=== PATIENT | male | born 1970 | race Caucasian/White ===

== ENCOUNTER 2018-06-25 09:44 | Day surgery (SDC) | payer BC ==
[2018-06-24 08:28] VITALS: BMI 22.3
[~2018-06-25 09:44] MED LIST: KETOROLAC 30 MG/ML 1 ML VIAL ONE; LACTATED RINGERS 1,000 ML IV SCH; LIDOCAINE 1% 20 ML VIAL (10MG/ML) FOR IV START INTRADERMA PRN; LIDOCAINE 1% INJ 10MG/ML (20 ML MDV) ONE; MIDAZOLAM (PF) 2 MG/2 ML VIAL IV PRN; MIDAZOLAM 2 MG/2 ML VIAL ONE; PROPOFOL 10 MG/ML 20 ML VIAL IV ONE; fentaNYL (PF) 50 MCG/ML 2 ML AMP ONE
[2018-06-25 10:35] VITALS: RESP 16; TEMP 98.1
[2018-06-25] MEDS ORDERED: PROPOFOL 10 MG/ML 20 ML VIAL IV ONE (11:09)
--- NOTE | 2018-06-25 11:27 | P.PCN ---
Date of Procedure: 06/25/18 Procedure(s) Performed: BRIEF HISTORY: Patient is a 48-year-old pleasant white male scheduled for an elective colonoscopy as a part of screening for colorectal neoplasia. He has family history of colon cancer diagnosed in his maternal grandmother at age 80 and maternal uncle at age 60. PROCEDURE PERFORMED: Colonoscopy with snare polypectomy. PREOPERATIVE DIAGNOSIS: Screening for colon cance/family history of colon cancer r. IV sedation per Anesthesia. PROCEDURE: After informed consent was obtained, the patient, was brought into the endoscopy unit. IV sedation was administered by Anesthesia under continuous monitoring. Digital rectal examination was normal. Initially the Olympus CF- 160 flexible video colonoscope was then inserted in the rectum, gradually advanced into the cecum without any difficulty. Careful examination was performed as the scope was gradually being withdrawn. Ileocecal valve and the appendiceal orifice were visualized and appeared normal. Prep was excellent. In the base of the cecum there was a 5 mm flat polyp that was removed by snare polypectomy. Mucosa of the cecum, ascending colon, transverse colon, appeared normal. In the descending colon there was another 5 mm broad-based polyp removed by snare polypectomy. The rest of the descending colon, sigmoid colon, and rectum appeared normal. Retroflexion was performed in the rectum and no lesions were seen. The patient tolerated the procedure well. IMPRESSION: 5 mm flat cecal polyp status post snare polypectomy 5 mm broad-based descending colon polyp status post snare polypectomy RECOMMENDATIONS: Findings of this examination were discussed with the patient as well as his family. He was advised to follow with the biopsy results and have a repeat colonoscopy in 3-5 years
[2018-06-25 11:50] VITALS: BP 92/54; PULSE 58
== END 2018-06-25 12:07 | disposition home or self-care (01) ==
LOC: ORWHC2ENDO 09:44
PROVIDERS: ATTEND Internal Medicine Gastroenterology
DX: Z12.11 Encounter for screening for malignant neoplasm of colon (principal); D12.0 Benign neoplasm of cecum; K63.5 Polyp of colon; Z80.0 Family history of malignant neoplasm of digestive organs; J45.909 Unspecified asthma, uncomplicated
CPT/HCPCS: 88305; 45385; J2704

== ENCOUNTER 2020-08-23 13:36 | Observation (INO) | payer BC ==
--- NOTE | 2020-08-23 14:08 | ED ---
General Adult HPI - General Chief complaint: Chest Pain Stated complaint: chest pain Time Seen by Provider: 08/23/20 13:52 Source: patient, RN notes reviewed, old records reviewed Mode of arrival: wheelchair Limitations: no limitations - History of Present Illness Initial comments: 50-year-old male presenting for evaluation of chest pain, diaphoresis, pain radiating to the left arm. Patient has no previous history of CAD. No history of DVT or PE. Yesterday in the middle the night he was woke with chest pain, palpitations and dyspnea. The symptoms have resolved. He was seen by cardiology last week and scheduled for an outpatient stress test within the next several weeks. He is a nonsmoker. Nondiabetic. He does have a family history of CAD. - Related Data Home Medications Medication Instructions Recorded Confirmed Albuterol Sulfate [Ventolin HFA] 1 - 2 puff INHALATION RT-QID PRN 08/23/20 08/23/20 Aspirin EC [Ecotrin Low Dose] 81 mg PO ONCE PRN 08/23/20 08/23/20 Multivitamins, Thera [Multivitamin 1 tab PO DAILY 08/23/20 08/23/20 (formulary)] Pantoprazole Sodium [Protonix] 40 mg PO HS 08/23/20 08/23/20 Saw [place] 500 mg PO DAILY 08/23/20 08/23/20 Tamsulosin [Flomax] 0.4 mg PO DIRECTED 08/23/20 08/23/20 Allergies Allergy/AdvReac Type Severity Reaction Status Date / Time latex AdvReac Rash/Hives Verified 08/23/20 14:21 Review of Systems ROS Statement: Those systems with pertinent positive or pertinent negative responses have been documented in the HPI. ROS Other: All systems not noted in ROS Statement are negative. Past Medical History Past Medical History: Asthma, GERD/Reflux History of Any Multi-Drug Resistant Organisms: None Reported Past Surgical History: Hernia Repair Additional Past Surgical History / Comment(s): wisdom teeth Past Anesthesia/Blood Transfusion Reactions: No Reported Reaction Past Psychological History: No Psychological Hx Reported Smoking Status: Never smoker Past Alcohol Use History: None Reported Past Drug Use History: None Reported - Past Family History Mother Family Medical History: No Reported History General Exam Limitations: no limitations General appearance: alert, in no apparent distress Head exam: Present: atraumatic, normocephalic Eye exam: Present: normal appearance, PERRL ENT exam: Present: normal exam Neck exam: Present: normal inspection. Absent: tenderness, meningismus Respiratory exam: Present: normal lung sounds bilaterally. Absent: respiratory distress, wheezes Cardiovascular Exam: Present: regular rate, normal rhythm GI/Abdominal exam: Present: soft. Absent: distended, tenderness Extremities exam: Present: normal inspection, normal capillary refill. Absent: pedal edema, calf tenderness Neurological exam: Present: alert, oriented X3, CN II-XII intact. Absent: motor sensory deficit Psychiatric exam: Present: normal affect, normal mood Skin exam: Present: warm, dry, intact. Absent: cyanosis, diaphoretic Course Vital Signs 08/23/20 08/23/20 13:37 15:09 Temperature 98 F Pulse Rate 63 60 Respiratory 18 18 Rate Blood Pressure 138/78 111/72 O2 Sat by Pulse 99 99 Oximetry EKG Findings - EKG Comments: EKG Findings:: EKG: Sinus bradycardia, rate 59, MT interval 182, QRS duration 104, QTC [address] segment elevation. Medical Decision Making - Medical Decision Making 50-year-old male with chief complaint of chest pain. Has been having some outpatient workup completed, scheduled for a stress test in the next 2 weeks. Workup revealed EKG which is sinus rhythm, chest x-rays negative for acute cardio pulmonary disease, normal CBC, d-dimer mildly elevated 0.59, CT angiog sherif is performed which is negative for PE, no acute findings. CMP within normal limits, initial troponin is negative. Given the patient's worsening symptoms he will be admitted for chest pain rule out. Case discussed with Dr. Grimes who will admit. Cardiology placed on consult. - Lab Data Result diagrams: 08/23/20 14:02 08/23/20 14:02 Lab Results 08/23/20 08/23/20 08/23/20 Range/Units 14:02 14:02 14:02 WBC 4.1 (3.8-10.6) k/uL RBC 4.54 (4.30-5.90) m/uL Hgb 13.9 (13.0-17.5) gm/dL Hct 41.5 (39.0-53.0) % MCV 91.5 (80.0-100.0) fL MCH 30.7 (25.0-35.0) pg MCHC 33.5 (31.0-37.0) g/dL RDW 12.4 (11.5-15.5) % Plt Count 187 (150-450) k/uL MPV 7.5 Neutrophils % 53 % Lymphocytes % 37 % Monocytes % 6 % Eosinophils % 2 % Basophils % 1 % Neutrophils # 2.2 (1.3-7.7) k/uL Lymphocytes # 1.5 (1.0-4.8) k/uL Monocytes # 0.2 (0-1.0) k/uL Eosinophils # 0.1 (0-0.7) k/uL Basophils # 0.0 (0-0.2) k/uL PT 10.4 (9.0-12.0) sec INR 1.0 (<1.2) APTT 25.6 (22.0-30.0) sec D-Dimer 0.59 (<0.60) mg/L FEU Sodium 141 (137-145) mmol/L Potassium 4.3 (3.5-5.1) mmol/L Chloride 103 (98-107) mmol/L Carbon Dioxide 29 (22-30) mmol/L Anion Gap 9 mmol/L BUN 17 (9-20) mg/dL Creatinine 0.73 (0.66-1.25) mg/dL Est GFR (CKD-EPI)AfAm >90 (>60 ml/min/1.73 sqM) Est GFR (CKD-EPI)NonAf >90 (>60 ml/min/1.73 sqM) Glucose 124 H (74-99) mg/dL Calcium 9.7 (8.4-10.2) mg/dL Magnesium 1.8 (1.6-2.3) mg/dL Total Bilirubin 0.7 (0.2-1.3) mg/dL AST 30 (17-59) U/L ALT 26 (4-49) U/L Alkaline Phosphatase 39 (38-126) U/L Troponin I (0.000-0.034) ng/mL NT-Pro-B Natriuret Pep pg/mL Total Protein 7.8 (6.3-8.2) g/dL Albumin 4.7 (3.5-5.0) g/dL Lipase 116 (23-300) U/L 08/23/20 08/23/20 Range/Units 14:02 14:02 WBC (3.8-10.6) k/uL RBC (4.30-5.90) m/uL Hgb (13.0-17.5) gm/dL Hct (39.0-53.0) % MCV (80.0-100.0) fL MCH (25.0-35.0) pg MCHC (31.0-37.0) g/dL RDW (11.5-15.5) % Plt Count (150-450) k/uL MPV Neutrophils % % Lymphocytes % % Monocytes % % Eosinophils % % Basophils % % Neutrophils # (1.3-7.7) k/uL Lymphocytes # (1.0-4.8) k/uL Monocytes # (0-1.0) k/uL Eosinophils # (0-0.7) k/uL Basophils # (0-0.2) k/uL PT (9.0-12.0) sec INR (<1.2) APTT (22.0-30.0) sec D-Dimer (<0.60) mg/L FEU Sodium (137-145) mmol/L Potassium (3.5-5.1) mmol/L Chloride (98-107) mmol/L Carbon Dioxide (22-30) mmol/L Anion Gap mmol/L BUN (9-20) mg/dL Creatinine (0.66-1.25) mg/dL Est GFR (CKD-EPI)AfAm (>60 ml/min/1.73 sqM) Est GFR (CKD-EPI)NonAf (>60 ml/min/1.73 sqM) Glucose (74-99) mg/dL Calcium (8.4-10.2) mg/dL Magnesium (1.6-2.3) mg/dL Total Bilirubin (0.2-1.3) mg/dL AST (17-59) U/L ALT (4-49) U/L Alkaline Phosphatase (38-126) U/L Troponin I <0.012 (0.000-0.034) ng/mL NT-Pro-B Natriuret Pep 67 pg/mL Total Protein (6.3-8.2) g/dL Albumin (3.5-5.0) g/dL Lipase (23-300) U/L Disposition Clinical Impression: Chest pain Disposition: ADMITTED IP TO THIS HOSP Condition: Stable Is patient prescribed a controlled substance at d/c from ED?: No Referrals: Keven Grimes Jr, [Primary Care Provider] - 1-2 days Decision to Admit Reason: Admit from EC Decision Date: 08/23/20 Decision Time: 16:07
[2020-08-23 14:23] LABS: Basophils % (A) 1 %; Eosinophils # (A) 0.1 k/uL (0-0.7); Eosinophils % (A) 2 %; HCT 41.5 % (39.0-53.0); HGB 13.9 gm/dL (13.0-17.5); Lymphocytes # (A) 1.5 k/uL (1.0-4.8); Lymphocytes % (A) 37 %; MCH 30.7 pg (25.0-35.0); MCHC 33.5 g/dL (31.0-37.0); MCV 91.5 fL (80.0-100.0); Mean Platelet Volume 7.5; Monocytes # (A) 0.2 k/uL (0-1.0); Monocytes % (A) 6 %; Neutrophils # (A) 2.2 k/uL (1.3-7.7); Neutrophils % (A) 53 %; Platelet Count 187 k/uL (150-450); RBC 4.54 m/uL (4.30-5.90); RDW 12.4 % (11.5-15.5); WBC 4.1 k/uL (3.8-10.6)
--- NOTE | 2020-08-23 14:24 | XR ---
EXAMINATION TYPE: XR chest 1V portable DATE OF EXAM: 08/23/2020 HISTORY: Shortness of breath. COMPARISON: None. TECHNIQUE: Single view of the chest is submitted. FINDINGS: Demonstrated are scattered senescent parenchymal change. There is no evidence for focal infiltrate. The heart is stable. Hilar and mediastinal structures are within normal limits. Degenerative changes are seen of the dorsal spine. IMPRESSION: 1. Chronic changes without evidence for acute pulmonary disease.
[2020-08-23 14:37] LABS: ALT 26 U/L (4-49); AST 30 U/L (17-59); African American GFR (CKD) >90 (>60 ml/min/1.73 sqM); Albumin 4.7 g/dL (3.5-5.0); Alkaline Phosphatase 39 U/L (38-126); Anion Gap 9 mmol/L; Blood Urea Nitrogen 17 mg/dL (9-20); Calcium 9.7 mg/dL (8.4-10.2); Carbon Dioxide 29 mmol/L (22-30); Chloride 103 mmol/L (98-107); Glucose 124 mg/dL (74-99); Lipase 116 U/L (23-300); Magnesium 1.8 mg/dL (1.6-2.3); Non-African American GFR(CKD) >90 (>60 ml/min/1.73 sqM); Potassium 4.3 mmol/L (3.5-5.1); Sodium 141 mmol/L (137-145); Total Bilirubin 0.7 mg/dL (0.2-1.3); Total Protein 7.8 g/dL (6.3-8.2)
[2020-08-23 14:46] LABS: D-Dimer 0.59 mg/L FEU (<0.60); Partial Thromboplastin Time 25.6 sec (22.0-30.0); Prothrombin Time 10.4 sec (9.0-12.0)
--- NOTE | 2020-08-23 15:34 | CT ---
EXAMINATION TYPE: CT angio chest DATE OF EXAM: 08/23/2020 COMPARISON: None HISTORY: Mid to left sided chest pain with left arm heaviness and cold feeling. CT DLP: 315.9 mGycm CONTRAST: CT chest with contrast and 3D reconstruction with MIP imaging is performed with IV Contrast, patient injected with 100 mL of Isovue 370. Contrast-enhanced CT of the chest was performed through the course of the pulmonary arteries with markus g and mediastinal window settings submitted. 3D reconstruction with MIP imaging was also performed. PULMONARY ARTERIES: The pulmonary arteries and their major tributaries are patent. I do not see soni dence for sizable filling defect to suggest pulmonary embolic process. LUNGS: The lungs are clear and free of infiltrate. No evidence for atelectasis. No pulmonary nodule or mass is detected. No pleural effusion. MEDIASTINUM: Thoracic aorta is of normal caliber,however, evaluation is limited given timing of the contrast bolus. If there is concern for thoracic aortic pathology consider JIM. Correlate clinicall y . The heart is not enlarged. No evidence for mediastinal mass. No mediastinal lymph nodes greater than 1cm. HILAR STRUCTURES: No evidence for mass. No hilar lymph nodes greater than 1 cm. UPPER ABDOMEN: No significant abnormality is seen. IMPRESSION: 1. No evidence for Pulmonary embolism at this time.
[2020-08-23] MEDS ORDERED: ASPIRIN 325 MG TAB PO STA (15:46)
[2020-08-23] MEDS ORDERED: MORPHINE SULFATE 4 MG/ML SYRINGE IV PRN (16:05)
[2020-08-23] MEDS ORDERED: ACETAMINOPHEN TAB 325 MG TAB PO PRN (16:05)
[2020-08-23] MEDS ORDERED: NALOXONE 0.4 MG/ML 1 ML VIAL IV PRN (16:05)
[2020-08-23] MEDS ORDERED: NITROGLYCERIN SL TABS 0.4 MG TAB SUBLINGUAL PRN (16:06)
[2020-08-24] MEDS ORDERED: DOBUTamine DRIP for NUC MED 500 MG in DEXTROSE/WATER 1 250ML.BAG IV PRN ×2 (09:30→12:26)
[2020-08-24] MEDS ORDERED: ALBUTEROL HFA INHALER INHALATION PRN (10:28)
[2020-08-24] MEDS ORDERED: TAMSULOSIN 0.4 MG CAP.ER.24H PO PRN (10:30)
[2020-08-24] MEDS ORDERED: SYMBICORT 80-4.5 MCG INHALER INHALATION SCH (10:30)
[2020-08-24] MEDS ORDERED: PANTOPRAZOLE 40 MG/10 ML VIAL IVP SCH (10:45)
--- NOTE | 2020-08-24 10:46 | P.CRDCN ---
History of Present Illness History of present illness: HISTORY OF PRESENTING ILLNESS This is a pleasant 50-year-old male with no significant past medical history. He follows in the office with Dr. Torres. We have been asked to see in consultation for chest pain. He states for the previous 3-4 months he has been feeling increasingly short of breath and his energy level is significantly decreased. He was diagnosed with closely June 12 but has since recovered. At that time his symptoms only loss of taste and smell. The night before last while sleeping he had an episode of discomfort in his chest that radiated to the left shoulder and upper arm associated with becoming extremely diaphoretic. He denies associated shortness of breath at that time or palpitations. The shortness of breath he has been experiencing is mostly exertional in nature. He did recently established in the office with Dr. Torres and is scheduled to undergo stress test and echocardiogram in the office. He states the episode he experienced was different than he has been feeling previously which prompted him to come to the emergency room for further evaluation. He has had no further symptoms of chest discomfort since arriving at the hospital. However during the time of my exam while asking him to take a deep breath he stated he felt a discomfort in his chest similar to what he experienced the night before. The pain was clearly exacerbated by deep inspiration. EKG revealed sinus bradycardia heart rate of [address] or T wave abnormalities noted. Chest x-ray is negative for an acute cardiopulmonary process. CTA negative for pulmonary embolism. Laboratory data reviewed, CBC unremarkable, d-dimer 0.59, sodium 141, potassium 4.3, creatinine 0.73, cardiac enzymes negative 3, and tape proBNP 67 and Covid positive. He takes no daily cardiac medications. REVIEW OF SYSTEMS At the time of my exam: CONSTITUTIONAL: Denies fever or chills. CARDIOVASCULAR: Denies chest pain, shortness of breath, orthopnea, PND or palpitations. RESPIRATORY: Denies cough. GASTROINTESTINAL: Denies abdominal pain, diarrhea, constipation, nausea or vomiting. MUSCULOSKELETAL: Denies myalgias. NEUROLOGIC: Denies numbness, tingling, headacbe or weakness. ENDOCRINE: Denies fatigue, weight change, polydipsia or polyurina. GENITOURINARY: Denies burning, hematuria or urgency with micturation. HEMATOLOGIC: Denies history of anemia or bleeding. PHYSICAL EXAMINATION Blood pressure 114/64 heart rate 58 afebrile and maintaining oxygen saturation on room air. CONSTITUTIONAL: No apparent distress. HEENT: Head is normocephalic. Pupils are equal, round. Sclerae anicteric. Mucous membranes of the mouth are moist. No JVD. No carotid bruit. CHEST EXAMINATION: Lungs are clear to auscultation. No chest wall tenderness is noted on palpation or with deep breathing. HEART EXAMINATION: Regular rate and rhythm. S1, S2 heard. No murmurs, gallops or rub. ABDOMEN: Soft, nontender. Positive bowel sounds. EXTREMITIES: 2+ peripheral pulses, no lower extremity edema and no calf tenderness. NEUROLOGIC EXAMINATION: Patient is awake, alert and oriented x3. ASSESSMENT Chest pain Exertional shortness of breath PLAN An acute coronary event has been ruled out. Obtain 2-D echocardiogram and Doppler study to assess cardiac structure and function. Perform stress echocardiogram to assess for stress-induced cardiac ischemia. COVID test continues to come back positive, however he is asymptomatic. Thank you kindly for this consultation. Nurse Practitioner note has been reviewed, I agree with a documented findings and plan of care. Patient was seen and examined. Past Medical History Past Medical History: Asthma, GERD/Reflux History of Any Multi-Drug Resistant Organisms: None Reported Past Surgical History: Hernia Repair Additional Past Surgical History / Comment(s): wisdom teeth Past Anesthesia/Blood Transfusion Reactions: No Reported Reaction Past Psychological History: No Psychological Hx Reported Smoking Status: Never smoker Past Alcohol Use History: None Reported Past Drug Use History: None Reported - Past Family History Mother Family Medical History: No Reported History Medications and Allergies Home Medications Medication Instructions Recorded Confirmed Type Albuterol Sulfate [Ventolin HFA] 1 - 2 puff INHALATION RT-QID PRN 08/23/20 08/23/20 History Aspirin EC [Ecotrin Low Dose] 81 mg PO ONCE PRN 08/23/20 08/23/20 History Multivitamins, Thera [Multivitamin 1 tab PO DAILY 08/23/20 08/23/20 History (formulary)] Pantoprazole Sodium [Protonix] 40 mg PO HS 08/23/20 08/23/20 History Saw [place] 500 mg PO DAILY 08/23/20 08/23/20 History Tamsulosin [Flomax] 0.4 mg PO DIRECTED 08/23/20 08/23/20 History Allergies Allergy/AdvReac Type Severity Reaction Status Date / Time latex AdvReac Rash/Hives Verified 08/23/20 14:21 Physical Exam Vitals: Vital Signs Temp Pulse Resp BP Pulse Ox 08/24/20 09:20 58 L 18 114/64 97 08/24/20 07:20 65 18 114/62 99 08/24/20 06:20 57 L 16 111/61 97 08/23/20 23:10 77 18 114/64 97 08/23/20 18:13 98.4 F 62 18 115/74 99 08/23/20 17:06 61 20 105/61 99 08/23/20 15:09 60 18 111/72 99 08/23/20 13:37 98 F 63 18 138/78 99 Results 08/23/20 14:02 08/23/20 14:02 Cardiac Enzymes 08/23/20 08/23/20 08/23/20 Range/Units 14:02 14:02 17:34 AST 30 (17-59) U/L Troponin I <0.012 <0.012 (0.000-0.034) ng/mL 08/23/20 Range/Units 20:47 AST (17-59) U/L Troponin I <0.012 (0.000-0.034) ng/mL Coagulation 08/23/20 Range/Units 14:02 PT 10.4 (9.0-12.0) sec APTT 25.6 (22.0-30.0) sec CBC 08/23/20 Range/Units 14:02 WBC 4.1 (3.8-10.6) k/uL RBC 4.54 (4.30-5.90) m/uL Hgb 13.9 (13.0-17.5) gm/dL Hct 41.5 (39.0-53.0) % Plt Count 187 (150-450) k/uL Comprehensive Metabolic Panel 08/23/20 Range/Units 14:02 Sodium 141 (137-145) mmol/L Potassium 4.3 (3.5-5.1) mmol/L Chloride 103 (98-107) mmol/L Carbon Dioxide 29 (22-30) mmol/L BUN 17 (9-20) mg/dL Creatinine 0.73 (0.66-1.25) mg/dL Glucose 124 H (74-99) mg/dL Calcium 9.7 (8.4-10.2) mg/dL AST 30 (17-59) U/L ALT 26 (4-49) U/L Alkaline Phosphatase 39 (38-126) U/L Total Protein 7.8 (6.3-8.2) g/dL Albumin 4.7 (3.5-5.0) g/dL Current Medications Generic Name Dose Route Start Last Admin Trade Name Freq PRN Reason Stop Dose Admin Acetaminophen 650 mg 08/23/20 16:05 Acetaminophen Tab 325 Mg Tab PO Q6HR PRN Mild Pain or Fever > 100.5 Albuterol Sulfate 2 puff 08/24/20 10:28 Albuterol Hfa Inhaler INHALATION RT-QID PRN Shortness Of Breath Dobutamine HCl/Dextrose 500 mg 250 mls @ 23.16 mls/hr 08/24/20 09:30 / IV Solution IV 08/24/20 13:31 .[id number] PRN Per Protocol Protocol 10 MCG/KG/MIN Morphine Sulfate 4 mg 08/23/20 16:05 Morphine Sulfate 4 Mg/Ml Syringe IV Q4HR PRN Severe Pain Naloxone HCl 0.2 mg 08/23/20 16:05 Naloxone 0.4 Mg/Ml 1 Ml Vial IV Q2M PRN Opioid Reversal Nitroglycerin 0.4 mg 08/23/20 16:06 Nitroglycerin Sl Tabs 0.4 Mg Tab SUBLINGUAL Q5M PRN Chest Pain Pantoprazole Sodium 40 mg 08/24/20 10:45 Pantoprazole 40 Mg/10 Ml Vial IVP DAILY [facility] Tamsulosin HCl 0.4 mg 08/24/20 10:30 Tamsulosin 0.4 Mg Cap.Er.24h PO DIRECTED ELIAZAR 08/23/20 14:02 08/23/20 14:02
[2020-08-24 10:59] VITALS: RESP 20; TEMP 98.1
[2020-08-24] MEDS ORDERED: ZINC SULFATE 220 MG CAP PO SCH (11:00)
[2020-08-24] MEDS ORDERED: CHOLECALCIFEROL 25 MCG (1000 IU) TABLET PO SCH (11:00)
[2020-08-24] MEDS ORDERED: ASCORBIC ACID 500 MG TAB PO SCH (11:00)
[2020-08-24] MEDS ORDERED: ALBUTEROL HFA INHALER INHALATION SCH (12:00)
--- NOTE | 2020-08-24 13:58 | ECHOF ---
Referral Reason:cp MEASUREMENTS -------- HEIGHT: 180.3 cm WEIGHT: 77.1 kg BP: 120/56 RVIDd: 2.5 cm (< 3.3) IVSd: 1.1 cm (0.6 - 1.1) LVIDd: 4.6 cm (3.9 - 5.3) LVPWd: 1.1 cm (0.6 - 1.1) IVSs: 1.6 cm LVIDs: 2.7 cm LVPWs: 1.7 cm LA Diam: 3.0 cm (2.7 - 3.8) Ao Diam: 3.0 cm (2.0 - 3.7) AV Cusp: 2.4 cm (1.5 - 2.6) MV EXCURSION: 19.132 mm (> 18.000) MV EF SLOPE: 118 mm/s (70 - 150) EPSS: 0.9 cm MV E Fredrick: 0.86 m/s MV DecT: 353 ms MV A Fredrick: 0.70 m/s MV E/A Ratio: 1.24 RAP: 5.00 mmHg RVSP: 29.93 mmHg FINDINGS -------- Sinus rhythm. This was a technically adequate study. The left ventricular size is normal. There is borderline concentric left ventricular hypertrophy. Overall left ventricular systolic function is normal with, an EF between 55 - 60 %. The right ventricle is normal in size. The left atrium is normal in size. The right atrial size is normal. Interatrial and interventricular septum intact. The aortic valve is trileaflet, and appears structurally normal. No aortic stenosis or regurgitation. The mitral valve is normal. There is trace mitral regurgitation. The tricuspid valve appears structurally normal. Trace tricuspid regurgitation present. Right jorge tricular systolic pressure is normal at < 35 mmHg. There is no pulmonic regurgitation present. The aortic root size is normal. Normal inferior vena cava with normal inspiratory collapse consistent with estimated right atrial pre ssure of 5 mmHg. The inferior vena cava is mildly dilated. There is no pericardial effusion. CONCLUSIONS -------- 1. There is borderline concentric left ventricular hypertrophy. 2. Overall left ventricular systolic function is normal with, an EF between 55 - 60 %. 3. The left atrium is normal in size. 4. The aortic valve is trileaflet, and appears structurally normal. No aortic stenosis or regurgitati on. 5. There is trace mitral regurgitation. 6. Trace tricuspid regurgitation present. 7. There is no pericardial effusion. CUT OFF WORKER: Angie Mercer RDCS
[2020-08-24 14:51] VITALS: BP 104/66; PULSE 86
--- NOTE | 2020-08-24 15:03 | P.HPIM ---
History of Present Illness H&P Date: 08/24/20 Chief Complaint: Chest pain History of physical and Discharge Summary This is a 50-year-old gentleman with past medical history of chronic intermittent asthma, gastroesophageal reflux disease, family history of CAD and multiple other medical issues presented to the ER with complaints of recurrent chest pain radiating down left arm, accompanied by diaphoresis and generalized increasing weakness with worsening exertional shortness of breath over the last few months even prior to his Covid. Reports 2 nights ago this chest pain woke him up out of a sleep in the middle of night and felt different from previous episodes, so proceeded into the ER. Deep inspiratoration appears to aggravate his symptoms-reports developed shortness of breath when running and playing with this 9-month-old puppy. Visited cardiology last week and scheduled for outpatient stress test. Reports June 12 had been diagnosed with Covid, with loss of taste and smell-recovered.Denies nausea vomiting or diarrhea. Denies syncope. Denies cough congestion. Tested positive for Coronavirus. Afebrile, normal WBC. Vital signs stable, maintaining O2 sats in the high 90s on room air. Hematology, coagulation, chemistry panel is unremarkable. D-dimer 0.59, CTA report no evidence of PE, Chest x-ray reporting chronic changes without evidence of acute pulmonary disease.Troponin negative 3, EKG reported sinus bradycardia, rate 59. Review of Systems ROS Statement: Those systems with pertinent positive or pertinent negative responses have been documented in the HPI. ROS Other: All systems not noted in ROS Statement are negative. Past Medical History Past Medical History: Asthma, GERD/Reflux History of Any Multi-Drug Resistant Organisms: None Reported Past Surgical History: Hernia Repair Additional Past Surgical History / Comment(s): wisdom teeth Past Anesthesia/Blood Transfusion Reactions: No Reported Reaction Past Psychological History: No Psychological Hx Reported Smoking Status: Never smoker Past Alcohol Use History: None Reported Past Drug Use History: None Reported - Past Family History Mother Family Medical History: No Reported History Medications and Allergies Home Medications Medication Instructions Recorded Confirmed Type Albuterol Sulfate [Ventolin HFA] 1 - 2 puff INHALATION RT-QID PRN 08/23/20 08/23/20 History Aspirin EC [Ecotrin Low Dose] 81 mg PO ONCE PRN 08/23/20 08/23/20 History Multivitamins, Thera [Multivitamin 1 tab PO DAILY 08/23/20 08/23/20 History (formulary)] Pantoprazole Sodium [Protonix] 40 mg PO HS 08/23/20 08/23/20 History Saw [place] 500 mg PO DAILY 08/23/20 08/23/20 History Tamsulosin [Flomax] 0.4 mg PO DIRECTED 08/23/20 08/23/20 History Allergies Allergy/AdvReac Type Severity Reaction Status Date / Time latex AdvReac Rash/Hives Verified 08/23/20 14:21 Physical Exam Vitals: Vital Signs Temp Pulse Resp BP Pulse Ox 08/24/20 09:20 58 L 18 114/64 97 08/24/20 07:20 65 18 114/62 99 08/24/20 06:20 57 L 16 111/61 97 08/23/20 23:10 77 18 114/64 97 08/23/20 18:13 98.4 F 62 18 115/74 99 08/23/20 17:06 61 20 105/61 99 08/23/20 15:09 60 18 111/72 99 08/23/20 13:37 98 F 63 18 138/78 99 PHYSICAL EXAM: VITAL SIGNS: As above GENERAL: Sitting up in bed, no acute distress HEENT: Conjunctivae normal. eyes normal. NECK: No JVD. No thyroid enlargement. No LNs CARDIOVASCULAR: S1, S2 regular.. No murmur RESPIRATION: Breath sounds diminished in the bases. No rhonchi or crackles. No bronchial breathing. ABDOMEN: Soft, nontender . No guarding. no masses palpable. No ascites, No hepatosplenomegaly.Bowel sounds heard. LEGS: No edema. no swelling. PSYCHIATRY: Alert and oriented X3, mood and affect normal. NERVOUS SYSTEM: Cranial N 2-12 grossly normal. Moves all 4 limbs. No focal deficits. Strength and sensation grossly intact.. Skin: Warm and dry, no rash Lymphatic system. No LN neck axilla. Results CBC & Chem 7: 08/23/20 14:02 08/23/20 14:02 Labs: Abnormal Lab Results - Last 24 Hours (Table) 08/23/20 08/23/20 Range/Units 14:02 16:45 Glucose 124 H (74-99) mg/dL Coronavirus (PCR) Detected A (Not Detectd) Assessment and Plan Assessment: Chest pain, ruling out acute coronary syndrome Recent covid diagnosed June 12, continues to test positive. PE ruled out Gastroesophageal reflux disease Chronic intermittent asthma Plan: Continue on current medication regime ,monitoring and symptomatic treatment. Cardiology consult in place. Scheduled for stress echo. Patient will be discharged home today in a stable condition with guarded prognosis pending stress results, final DC recommendations and clearance from cardiology. Patient will also be scheduled outpatient with Dr. Galvan regarding gastroesophageal reflux disease. Discharge Medication List Albuterol Sulfate [Ventolin HFA] 1 - 2 puff INHALATION RT-QID PRN 08/23/20 [History] Aspirin EC [Ecotrin Low Dose] 81 mg PO ONCE PRN 08/23/20 [History] Multivitamins, Thera [Multivitamin (formulary)] 1 tab PO DAILY 08/23/20 [History] Pantoprazole Sodium [Protonix] 40 mg PO HS 08/23/20 [History] [place] 500 mg PO DAILY 08/23/20 [History] Tamsulosin [Flomax] 0.4 mg PO DIRECTED 08/23/20 [History] The impression and plan of care has been dictated as directed. : I performed a history and examination of this patient, discussed the same with the dictator. I agree with the dictator's note ,documented as a scribe. Any additional findings or plans will be noted.
--- NOTE | 2020-08-26 19:28 | ECHOS ---
STRESS ECHOCARDIOGRAM LUMASON: N/A Vial INDICATIONS: Chest pain MEDICATIONS: BASELINE HEART RATE: 65 BASELINE BLOOD PRESSURE: 96/56 MAXIMUM HEART RATE: 144 MAXIMUM BLOOD PRESSURE: 177/68 85% MPHR: 143 100% MPHR: 168 METS: N/A MAXIMUM STAGE REACHED: TOTAL EXERCISE TIME: 12:00 CLINICAL INFORMATION: Baseline rhythm is sinus mechanism, rate of 65, normal axis and intervals, normal electrocardiogram. Baseline blood pressure 96/56 mmHg. Patient received an infusion of dobutamine per protocol reaching peak rate 144 beats per minute which is equal to 86% maximum predicted heart rate. Peak blood pressure 177/68 mmHg. Electrocardiograph monitoring revealed occasional single PVCs. There is [address]-segment depression that resolved rapidly in recovery. Baseline echocardiogram revealed normal wall motion. At peak infusion, there was normal wall motion augmentation with no hypokinesis or dyskinesis. CONCLUSION: 1. Borderline positive electrocardiograph response to dobutamine infusion with occasional single PVCs. 2. Normal stress echocardiogram with no evidence of stress-induced ischemia. MMODL / IJN: [id number] /
== END 2020-08-24 15:25 | disposition home or self-care (01) ==
LOC: EC 13:36 → 6NMEDSUR 16:05
PROVIDERS: ADMIT Family Medicine; ATTEND Family Medicine
DX: R07.89 Other chest pain (principal); R06.02 Shortness of breath; M79.602 Pain in left arm; R61 Generalized hyperhidrosis; R00.2 Palpitations; R53.1 Weakness; R00.1 Bradycardia, unspecified; R79.1 Abnormal coagulation profile; J45.20 Mild intermittent asthma, uncomplicated; K21.9 Gastro-esophageal reflux disease without esophagitis; Z20.822 Contact with and (suspected) exposure to COVID-19; Z86.74 Personal history of sudden cardiac arrest; Z79.899 Other long term (current) drug therapy; Z91.040 Latex allergy status; Z98.890 Other specified postprocedural states; Z82.49 Family history of ischemic heart disease and other diseases of the circulatory system; Z86.16 Personal history of COVID-19
CPT/HCPCS: 96374; 99285; 36415; 93005; 93306; 93351; 85379; 83880; 80053; 83690; 83735; 84484; 85025; 85610; 85730; 87635; 71045; 71275; G0378 ×2; J1250; C9113; Q9967

== ENCOUNTER 2020-10-19 10:39 | Day surgery (SDC) | payer BC ==
[2020-10-18 13:09] VITALS: BMI 23.0
[~2020-10-19 10:39] MED LIST changes: -KETOROLAC 30 MG/ML 1 ML VIAL ONE; -LIDOCAINE 1% 20 ML VIAL (10MG/ML) FOR IV START INTRADERMA PRN; -LIDOCAINE 1% INJ 10MG/ML (20 ML MDV) ONE; -MIDAZOLAM (PF) 2 MG/2 ML VIAL IV PRN; -MIDAZOLAM 2 MG/2 ML VIAL ONE; -PROPOFOL 10 MG/ML 20 ML VIAL IV ONE; -fentaNYL (PF) 50 MCG/ML 2 ML AMP ONE
[2020-10-19 11:34] VITALS: RESP 16; TEMP 97.2
[2020-10-19] MEDS ORDERED: MIDAZOLAM 2 MG/2 ML VIAL ONE (11:54)
[2020-10-19] MEDS ORDERED: PROPOFOL 10 MG/ML 20 ML VIAL IV ONE (11:54)
[2020-10-19] MEDS ORDERED: fentaNYL (PF) 50 MCG/ML 2 ML AMP ONE (11:54)
--- NOTE | 2020-10-19 12:05 | P.PCN ---
Date of Procedure: 10/19/20 Procedure(s) Performed: BRIEF HISTORY: Patient is a 50-year-old, pleasant, white male scheduled for an upper endoscopy as a part of evaluation of GERD and atypical chest pain. He has been on Protonix 40 mg daily and currently doing well. He scheduled for an upper endoscopy to rule out complicated reflux disease PROCEDURE PERFORMED: Esophagogastroduodenoscopy with biopsy . PREOPERATIVE DIAGNOSIS: GERD/ATYPICAL CHEST PAIN IV setion per anesthesia. PROCEDURE: After informed consent was obtained, the patient was brought into the endoscopy unit. IV sedation was administered by Anesthesia under continuous monitoring. Initially the Olympus GIF-140 video endoscope was inserted into the mouth. Esophagus intubated without any difficulty. It was gradually advanced into the stomach and duodenum and carefully examined. The bulb and the second part of the duodenum appeared normal. The scope at this time was withdrawn to the stomach, adequately insufflated with air, and upon careful examination, mucosa of the antrum, body, cardia and the fundus appeared normal. small gastric polyps identified in the proximal body the stomach which was biopsied. The scope was then withdrawn into the esophagus. The GE junction was located at 39 cm from the incisors. The esophagus appeared normal. There were no erosions or ulcerations seen , biopsies were done from the distal esophagus and the patient tolerated the procedure well. IMPRESSION: 1. Small gastric polyps. 2. normal-appearing esophagus with no evidence of esophagitis or [place]'s esophagus RECOMMENDATIONS: The findings of this examination were discussed with the patientas well as his family. He was advised to follow with the biopsy results. He will continue with pantoprazole 40 mg daily and continue to follow antireflux measures..
[2020-10-19 12:29] VITALS: PULSE 51
[2020-10-19 12:38] VITALS: BP 108/78
== END 2020-10-19 12:50 | disposition home or self-care (01) ==
LOC: ORWHC2ENDO 10:39
PROVIDERS: ATTEND Internal Medicine Gastroenterology
DX: K29.50 Unspecified chronic gastritis without bleeding (principal); K31.7 Polyp of stomach and duodenum; K21.00 Gastro-esophageal reflux disease with esophagitis, without bleeding; J45.909 Unspecified asthma, uncomplicated; Z79.899 Other long term (current) drug therapy; Z91.040 Latex allergy status
CPT/HCPCS: 88305; 43239; J2250; J3010; J2704

== ENCOUNTER 2024-10-11 09:19 | Day surgery (SDC) | payer BC ==
[~2024-10-11 09:19] MED LIST changes: -LACTATED RINGERS 1,000 ML IV SCH; +LIDOCAINE 1% (10MG/ML) FOR IV START INTRADERMA PRN
[2024-10-11] MEDS: IV FLUID CONTINUATION 900 ML IV ONE (10:22)
[2024-10-11 10:24] VITALS: TEMP 97.7
[2024-10-11] MEDS: IV FLUID CONTINUATION 1,000 ML IV ONE (10:31)
[2024-10-11] MEDS: LACTATED RINGERS 1,000 ML IV SCH (10:34)
[2024-10-11] MEDS ORDERED: PROPOFOL 10 MG/ML 20 ML VIAL IV ONE (11:06)
[2024-10-11] MEDS ORDERED: LIDOCAINE 1% INJ 10MG/ML (20 ML MDV) ONE (11:06)
--- NOTE | 2024-10-11 11:17 | P.PCN ---
Date of Procedure: 10/11/24 Procedure(s) Performed: BRIEF HISTORY: Patient is a 54-year-old pleasant white male scheduled for an elective colonoscopy as a part of screening for colon cancer/history of colon polyps. His last colonoscopy was 6 years ago and was noted to have a serrated adenoma. PROCEDURE PERFORMED: Colonoscopy with snare polypectomy. PREOPERATIVE DIAGNOSIS: Screening for history of colon polyps. IV sedation per Anesthesia. PROCEDURE: After informed consent was obtained, the patient, was brought into the endoscopy unit. IV sedation was administered by Anesthesia under continuous monitoring. Digital rectal examination was normal. Initially the Olympus CF-160 flexible video colonoscope was then inserted in the rectum, gradually advanced into the cecum without any difficulty. Careful examination was performed as the scope was gradually being withdrawn. Ileocecal valve and the appendiceal orifice were visualized and appeared normal. Prep was excellent. Mucosa of the cecum, ascending colon appeared normal. The transverse colon there was a 5 to 6 mm sessile polyp removed by cold snare polypectomy. Rest of the transverse colon, descending colon, sigmoid colon, and rectum appeared normal. Retroflexion was performed in the rectum and no lesions were seen. The patient tolerated the procedure well. IMPRESSION: 6 mm transverse colon polyp status post cold snare polypectomy Rest of the colon appeared normal RECOMMENDATIONS: Findings of this examination were discussed with the patient as well as his family.. He was advised to follow-up with the biopsy results. If the biopsy is adenoma he can have repeat colonoscopy in 5 years.
[2024-10-11 11:22] VITALS: RESP 16
[2024-10-11 11:43] VITALS: BP 100/61; PULSE 54
== END 2024-10-11 12:12 | disposition home or self-care (01) ==
LOC: ORWHC2ENDO 09:19
PROVIDERS: ATTEND Internal Medicine Gastroenterology
DX: Z12.11 Encounter for screening for malignant neoplasm of colon (principal); K63.5 Polyp of colon; K21.9 Gastro-esophageal reflux disease without esophagitis; J45.909 Unspecified asthma, uncomplicated; F17.200 Nicotine dependence, unspecified, uncomplicated; N40.0 Benign prostatic hyperplasia without lower urinary tract symptoms; Z86.0101 Personal history of adenomatous and serrated colon polyps; Z91.040 Latex allergy status; Z79.899 Other long term (current) drug therapy
CPT/HCPCS: 88305; 45385; J2003; J2704